=== PATIENT | female | born 1995 | race American Indian/Alaskan Native ===

== ENCOUNTER 2019-06-24 12:00 | Emergency (ER) | payer SELFPAY ==
--- NOTE | 2019-06-24 12:31 | Emergency Department Report ---
Chief Complaint: Upper Respiratory Infection Stated Complaint: SICK, FEVER, NAUSEA Time Seen by Provider: 06/24/19 12:30 - HPI History of Present Illness: Jennifer presents with nasal congestion, cough, nausea. Recommended OTC for URI. MSE completed. MSE screening note: Focused history and physical exam performed. Due to findings the following was ordered: ED Disposition for MSE Clinical Impression: Encounter for medical screening examination Disposition: MED SCREENING EXAM-LEFT Is pt being admited?: No Does the pt Need Aspirin: No Condition: Stable Referrals: YENNY SANTAMARIA MD [Staff Physician] - 3-5 Days Forms: Work/School Release Form(ED)
[2019-06-24 12:32] VITALS: BP 112/52
== END 2019-06-24 13:05 | disposition left against medical advice (07) ==
LOC: ED 12:00
DX: R09.89 Other specified symptoms and signs involving the circulatory and respiratory systems (principal); R05 Cough; R11.0 Nausea; Z00.8 Encounter for other general examination
CPT/HCPCS: 99281

== ENCOUNTER 2019-07-14 13:12 | Emergency (ER) | payer SELFPAY ==
[2019-07-14 17:00] LABS: Bilirubin,Urine NEG (Negative); Blood,Urine NEG (Negative); Color,Urine Yellow (Yellow); Mucus,Urine 2+ /HPF; Urobilinogen,Urine < 2.0 mg/dL (<2.0)
[2019-07-14 17:02] LABS: HCG Qualitative,Urine Negative (Negative)
--- NOTE | 2019-07-14 19:17 | Emergency Department Report ---
ED N/V/D HPI - General Chief complaint: Nausea/Vomiting/Diarrhea Stated complaint: VOMITING Time Seen by Provider: 07/14/19 19:08 Source: patient Mode of arrival: Ambulatory Limitations: No Limitations - History of Present Illness Initial comments: Patient is 23 years old female with no significant past medical history. Patient presented to the ER complaining of nausea and vomiting started this morning. Patient stated that she had this symptoms before several times. 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 Patient denied any abdominal pain, diarrhea, fever or chills. Patient stated that she is feeling better now. MD complaint: nausea, vomiting -: This morning Associated Abdominal Pain: No Context: other - Related Data Allergies Allergy/AdvReac Type Severity Reaction Status Date / Time No Known Allergies Allergy Unverified 06/24/19 12:03 ED Review of Systems ROS: Stated complaint: VOMITING Other details as noted in HPI Comment: All other systems reviewed and negative Constitutional: denies: chills, fever Cardiovascular: denies: chest pain Gastrointestinal: nausea, vomiting. denies: abdominal pain, diarrhea, constipation, hematemesis, melena, hematochezia Musculoskeletal: denies: back pain Neurological: denies: headache, weakness ED Past Medical Hx - Past Medical History Previous Medical History?: No - Surgical History Past Surgical History?: No - Social History Smoking Status: Current Every Day Smoker Substance Use Type: None ED Physical Exam - General Limitations: No Limitations General appearance: alert, in no apparent distress - Head Head exam: Present: atraumatic, normocephalic, normal inspection - Eye Eye exam: Present: normal appearance - ENT ENT exam: Present: normal exam, normal orophraynx, mucous membranes moist. Absent: mucous membranes dry - Neck Neck exam: Present: normal inspection, full ROM. Absent: tenderness, meningismus, lymphadenopathy, thyromegaly - Respiratory Respiratory exam: Present: normal lung sounds bilaterally - Cardiovascular Cardiovascular Exam: Present: regular rate, normal rhythm, normal heart sounds - GI/Abdominal GI/Abdominal exam: Present: soft, normal bowel sounds. Absent: distended, tenderness, guarding, rebound, rigid, organomegaly, mass, bruit, pulsatile mass, hernia - Extremities Exam Extremities exam: Present: normal inspection, full ROM, normal capillary refill. Absent: pedal edema, calf tenderness - Back Exam Back exam: Present: normal inspection, full ROM. Absent: CVA tenderness (R), CVA tenderness (L) - Neurological Exam Neurological exam: Present: alert, oriented X3, CN II-XII intact, normal gait, reflexes normal - Skin Skin exam: Present: warm, intact, normal color ED Course Vital Signs 07/14/19 14:04 Temperature 97.4 F L Pulse Rate 77 Respiratory 18 Rate Blood Pressure 101/68 O2 Sat by Pulse 99 Oximetry ED Medical Decision Making - Medical Decision Making Patient is 23 years old female with no significant past medical history. Patient presented to the ER complaining of nausea and vomiting started this morning. Patient stated that she had this symptoms before several times. 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 Patient denied any abdominal pain, diarrhea, fever or chills. Patient stated that she is feeling better now. Patient stated that her symptoms resolved now. Urine is reviewed and is negative for and no ketones to indicate dehydration. Abdomen is soft and no clinical evidence of acute abdomen. Patient given prescription for Zofran and advised to follow-up with her primary care physician in the next 2 to 3 days and to return to the ER if she is not feeling better. Critical care attestation.: If time is entered above; I have spent that time in minutes in the direct care of this critically ill patient, excluding procedure time. ED Disposition Clinical Impression: Nausea and vomiting Disposition: DC-01 TO HOME OR SELFCARE Is pt being admited?: No Condition: Stable Instructions: Acute Nausea and Vomiting (ED) Referrals: PRIMARY CARE, [Primary Care Provider] - 3-5 Days Forms: Work/School Release Form(ED)
[2019-07-14 19:35] VITALS: BP 116/71
== END 2019-07-14 19:33 | disposition home or self-care (01) ==
LOC: ED 13:12
DX: R11.2 Nausea with vomiting, unspecified (principal); F17.200 Nicotine dependence, unspecified, uncomplicated
CPT/HCPCS: 81001; 81025; 99283

== ENCOUNTER 2020-03-14 09:08 | Emergency (ER) | payer SELFPAY ==
[2020-03-14 09:14] VITALS: BP 109/58
--- NOTE | 2020-03-14 10:04 | Emergency Department Report ---
- General Chief Complaint: Upper Respiratory Infection Stated Complaint: SORE THROAT/COUGH/NO SMELL/TASTE Time Seen by Provider: 03/14/20 09:46 Source: patient Mode of arrival: Ambulatory Limitations: No Limitations - History of Present Illness Initial Comments: Patient is a 24-year-old female presents emergency room with complaints of URI symptoms that began a week ago. She has associated rhinorrhea, nasal congestion, sore throat, mild occasional dry cough. She denies any nausea, vomiting, diarrhea, fever, ear pain, shortness of breath, chest pain, abdominal pain. She states that she cannot smell or taste. She denies any known sick contacts or recent travel. She denies any past medical history. No allergies to medications. She states that her last menstrual cycle was 03/08/2020. - Related Data Previous Rx's Medication Instructions Recorded Last Taken Type Ondansetron [Zofran Odt] 4 mg PO Q8HR PRN #14 tab.rapdis 07/14/19 Unknown Rx Allergies Allergy/AdvReac Type Severity Reaction Status Date / Time No Known Allergies Allergy Unverified 06/24/19 12:03 ED Review of Systems ROS: Stated complaint: SORE THROAT/COUGH/NO SMELL/TASTE Other details as noted in HPI Comment: All other systems reviewed and negative ED Past Medical Hx - Past Medical History Previous Medical History?: No - Surgical History Past Surgical History?: No - Social History Smoking Status: Current Every Day Smoker Substance Use Type: None - Medications Home Medications: Home Medications Medication Instructions Recorded Confirmed Last Taken Type Ondansetron [Zofran Odt] 4 mg PO Q8HR PRN #14 tab.rapdis 07/14/19 Unknown Rx ED Physical Exam - General Limitations: No Limitations General appearance: alert, in no apparent distress - Head Head exam: Present: atraumatic, normocephalic - Eye Eye exam: Present: normal appearance - ENT ENT exam: Present: normal orophraynx, mucous membranes moist, TM's normal bilaterally, normal external ear exam - Neck Neck exam: Present: full ROM. Absent: meningismus - Respiratory Respiratory exam: Present: normal lung sounds bilaterally. Absent: respiratory distress, wheezes, rales, rhonchi, stridor, chest wall tenderness, accessory muscle use, decreased breath sounds, prolonged expiratory - Cardiovascular Cardiovascular Exam: Present: regular rate, normal rhythm, normal heart sounds. Absent: systolic murmur, diastolic murmur, rubs, gallop - Neurological Exam Neurological exam: Present: alert, oriented X3 - Psychiatric Psychiatric exam: Present: normal affect, normal mood - Skin Skin exam: Present: warm, dry, intact ED Course Vital Signs 03/14/20 09:13 Temperature 98.2 F Pulse Rate 62 Respiratory 16 Rate Blood Pressure 109/58 [Right] O2 Sat by Pulse 98 Oximetry ED Medical Decision Making - Radiology Data Radiology results: report reviewed - Medical Decision Making Patient is a 24-year-old female presents emergency room with complaints of URI symptoms that began a week ago. She has associated rhinorrhea, nasal congestion, sore throat, mild occasional dry cough. She denies any nausea, vomiting, diarrhea, fever, ear pain, shortness of breath, chest pain, abdominal pain. She states that she cannot smell or taste. She denies any known sick contacts or recent travel. She denies any past medical history. No allergies to medications. She states that her last menstrual cycle was 03/08/2020. Vitals are normal. On exam normal oropharynx, normal TMs and canals bilaterally, normal nasal turbinates, breath sounds are clear bilaterally, no wheezing, no rales, no rhonchi. Patient has no tachycardia, no fever, no hypoxia, breath sounds are clear bilaterally. Symptoms and examination appear most consistent with viral URI. Patient does not have any clinical signs of bacterial pneumonia or bronchitis. She has no clinical signs of dehydration. Patient is presenting with these symptoms during a COVID-19 pandemic, discussed the possibility of COVID-19 with patient, discussed very strict return precautions, discussed outpatient testing, discussed self quarantine. advised pt Please increase your fluid intake over the next several days. May take Tylenol as needed for fever or body aches. May take dest-xnp-jywygfz cold symptom relief medication such as Mucinex or TheraFlu. Follow-up with a primary care doctor for reexamination. Return to emergency room immediately for any new or worsening symptoms including but not limited to difficulty breathing, shortness of breath, severe chest pain, unable to tolerate by mouth intake, etc. Please self quarantine for 2 weeks from the onset of your symptoms. Please do not go out in public. If you are around others at home please wear a mask. If you need to cough or sneeze please do so in a napkin and immediately throw it away and immediately wash your hands. Wash your hands frequently. Wipe everything down. Recommend for you to get COVID-19 testing, may have this done at primary care doctor, health department, [facility] testing center. - Differential Diagnosis URI, PNA, COVID-19, viral syndrome, tonsillitis, pharyngitis, sinusitis Critical care attestation.: If time is entered above; I have spent that time in minutes in the direct care of this critically ill patient, excluding procedure time. ED Disposition Clinical Impression: Viral URI with cough Disposition: DC- TO HOME OR SELFCARE Is pt being admited?: No Does the pt Need Aspirin: No Condition: Stable Instructions: COVID-19, Viral Syndrome (ED) Additional Instructions: Please increase your fluid intake over the next several days. May take Tylenol as needed for fever or body aches. May take zedk-ikb-udgsuqc cold symptom relief medication such as Mucinex or TheraFlu. Follow-up with a primary care doctor for reexamination. Return to emergency room immediately for any new or worsening symptoms including but not limited to difficulty breathing, shortness of breath, severe chest pain, unable to tolerate by mouth intake, etc. Please self quarantine for 2 weeks from the onset of your symptoms. Please do not go out in public. If you are around others at home please wear a mask. If you need to cough or sneeze please do so in a napkin and immediately throw it away and immediately wash your hands. Wash your hands frequently. Wipe everything down. Recommend for you to get COVID-19 testing, may have this done at primary care doctor, health department, [facility] testing center. Referrals: YENNY SANTAMARIA MD [Staff Physician] - 2-3 Days [facility] [Provider Group] - 2-3 Days Forms: Work/School Release Form(ED) Time of Disposition: 10:04 Print Language: CYMRAES
== END 2020-03-14 11:19 | disposition home or self-care (01) ==
LOC: ED 09:08
DX: J06.9 Acute upper respiratory infection, unspecified (principal); F17.200 Nicotine dependence, unspecified, uncomplicated
CPT/HCPCS: 99282

== ENCOUNTER 2020-07-19 06:41 | Emergency (ER) | payer SELFPAY ==
[2020-07-19] MEDS ORDERED: ONDANSETRON 4 MG ODT TAB PO ONE (06:52)
[2020-07-19] MEDS ORDERED: IBUPROFEN 600 MG TAB PO ONE (06:52)
[2020-07-19] MEDS ORDERED: BUTALB/ACETAMINOPHEN/CAFFEINE TAB PO ONE (06:52)
--- NOTE | 2020-07-19 07:08 | Emergency Department Report ---
ED General Adult HPI - General Chief complaint: Headache Stated complaint: HEADACHE/CRAMPING/STOMACH PAIN Time Seen by Provider: 07/19/20 07:03 Source: patient Mode of arrival: Ambulatory Limitations: No Limitations - History of Present Illness Initial comments: 24-year-old female with no significant past medical history presents to the ER today with complaints of headache and lower abdominal cramping. Patient states that the symptoms started about 2 days ago. She denies any associated nausea, vomiting, diarrhea, URI symptoms, cough, vaginal discharge, UTI symptoms fever or chills. She states that she is currently on her menstrual cycle. She denies any ill contacts or recent travel. She tried Motrin 200 mg which did not help her symptoms. MD Complaint: Abdominal pain/KINCAID -: Gradual (2 days ago ) Location: head, abdomen - Related Data Previous Rx's Medication Instructions Recorded Last Taken Type Ondansetron [Zofran Odt] 4 mg PO Q8HR PRN #14 tab.rapdis 07/14/19 Unknown Rx Ibuprofen [Motrin] 800 mg PO Q8HR PRN #30 tablet 07/19/20 Unknown Rx cephALEXin [Keflex] 500 mg PO Q8HR #21 cap 07/19/20 Unknown Rx Allergies Allergy/AdvReac Type Severity Reaction Status Date / Time No Known Allergies Allergy Unverified 06/24/19 12:03 ED Review of Systems ROS: Stated complaint: HEADACHE/CRAMPING/STOMACH PAIN Other details as noted in HPI Comment: All other systems reviewed and negative Constitutional: denies: chills, fever ENT: denies: ear pain, throat pain Respiratory: denies: cough, shortness of breath, wheezing Cardiovascular: denies: chest pain, palpitations Gastrointestinal: abdominal pain. denies: nausea, vomiting, diarrhea, constipation, hematemesis, hematochezia Genitourinary: denies: urgency, dysuria, discharge Musculoskeletal: denies: back pain, joint swelling, arthralgia Skin: denies: rash, lesions Neurological: headache Psychiatric: denies: anxiety, depression Hematological/Lymphatic: denies: easy bleeding, easy bruising ED Past Medical Hx - Social History Smoking Status: Never Smoker Substance Use Type: None - Medications Home Medications: Home Medications Medication Instructions Recorded Confirmed Last Taken Type Ondansetron [Zofran Odt] 4 mg PO Q8HR PRN #14 tab.rapdis 07/14/19 Unknown Rx Ibuprofen [Motrin] 800 mg PO Q8HR PRN #30 tablet 07/19/20 Unknown Rx cephALEXin [Keflex] 500 mg PO Q8HR #21 cap 07/19/20 Unknown Rx ED Physical Exam - General Limitations: No Limitations General appearance: alert, in no apparent distress - Head Head exam: Present: atraumatic, normocephalic, normal inspection - Eye Eye exam: Present: normal appearance, PERRL, EOMI Pupils: Present: normal accommodation - ENT ENT exam: Present: normal exam, mucous membranes moist - Neck Neck exam: Present: normal inspection, full ROM. Absent: meningismus - Respiratory Respiratory exam: Present: normal lung sounds bilaterally. Absent: respiratory distress - Cardiovascular Cardiovascular Exam: Present: regular rate, normal rhythm, normal heart sounds - GI/Abdominal GI/Abdominal exam: Present: soft, tenderness (Mild suprapubic ttp ). Absent: distended - Neurological Exam Neurological exam: Present: alert, oriented X3, CN II-XII intact, normal gait - Psychiatric Psychiatric exam: Present: normal affect, normal mood - Skin Skin exam: Present: intact ED Course Vital Signs 07/19/20 06:47 Temperature 97.9 F Pulse Rate 74 Respiratory 15 Rate Blood Pressure 114/80 O2 Sat by Pulse 97 Oximetry ED Medical Decision Making - Lab Data Result diagrams: 07/19/20 07:08 07/19/20 07:07 - Medical Decision Making 24-year-old female with no significant past medical history presents to the ER today with complaints of headache and lower abdominal cramping. Patient states that the symptoms started about 2 days ago. She denies any associated nausea, vomiting, diarrhea, URI symptoms, cough, vaginal discharge, UTI symptoms fever or chills. She states that she is currently on her menstrual cycle. She denies any ill contacts or recent travel. She tried Motrin 200 mg which did not help her symptoms. Labs reviewed, CBC and CMP unremarkable. Urinalysis concerning for UTI. hCG negative. Patient currently resting comfortably, and she is not in any acute pain or respiratory distress. She is well-appearing, not toxic, and appears well- hydrated. She is neurologically intact with a normal gait. She has a soft nontender abdomen. Discussed lab results with patient discussed suspected diagnosis and treatment plan with patient. No further work-up indicated at this time. Patient expressed understanding of instructions and agree with plan. Patient was stable at time of discharge. Critical care attestation.: If time is entered above; I have spent that time in minutes in the direct care of this critically ill patient, excluding procedure time. ED Disposition Clinical Impression: UTI (urinary tract infection) Disposition: DC- TO HOME OR SELFCARE Is pt being admited?: No Does the pt Need Aspirin: No Condition: Stable Instructions: Urinary Tract Infection, Adult Additional Instructions: Take the Motrin and antibiotics as prescribed. Drink lots of water. Follow-up closely with your primary care doctor. Return to the ER if your symptoms changes or worsens in any way. Prescriptions: cephALEXin [Keflex] 500 mg PO Q8HR #21 cap Ibuprofen [Motrin] 800 mg PO Q8HR PRN #30 tablet PRN Reason: Pain, Moderate (4-6) Referrals: YENNY SANTAMARIA MD [Staff Physician] - 3-5 Days Forms: Work/School Release Form(ED) Time of Disposition: 08:23
[2020-07-19 07:12] VITALS: BP 114/80
[2020-07-19 07:21] LABS: Basophils % (Auto) 0.6 % (0.0-1.8); Eosinophils # (Auto) 0.1 K/mm3 (0.0-0.4); Eosinophils % (Auto) 1.9 % (0.0-4.3); Hematocrit 39.4 % (30.3-42.9); Hemoglobin 13.2 gm/dl (10.1-14.3); Lymphocytes # (Auto) 2.2 K/mm3 (1.2-5.4); Lymphocytes % (Auto) 36.4 % (13.4-35.0); Mean Corpuscular HGB Conc 34 % (30-34); Mean Corpuscular Volume 89 fl (79-97); Monocytes # (Auto) 0.4 K/mm3 (0.0-0.8); Monocytes % (Auto) 6.1 % (0.0-7.3); Platelet Count 220 K/mm3 (140-440); Red Blood Count 4.42 M/mm3 (3.65-5.03); Red Cell Distribution Width 13.3 % (13.2-15.2)
[2020-07-19 07:49] LABS: HCG Qualitative,Urine Negative (Negative)
[2020-07-19 07:52] LABS: Amorphous Crystals,Urine Few; Bacteria,Urine 1+ /HPF (Negative); Bilirubin,Urine NEG (Negative); Blood,Urine SM (Negative); Color,Urine Yellow (Yellow); Mucus,Urine FEW /HPF; Protein,Urine <15 mg/dL mg/dL (Negative)
[2020-07-19 08:16] LABS: Alanine Aminotransferase 17 units/L (7-56); Blood Urea Nitrogen 10 mg/dL (7-17); Calcium 8.7 mg/dL (8.4-10.2); Hemolysis Index 3
[2020-07-19 08:20] LABS: BUN/Creatinine Ratio 17
== END 2020-07-19 08:40 | disposition home or self-care (01) ==
LOC: ED 06:41
DX: N39.0 Urinary tract infection, site not specified (principal); Z79.899 Other long term (current) drug therapy
CPT/HCPCS: 36415; 80053; 81001; 81025; 85025; 87086; 99283; Q0162

== ENCOUNTER 2020-08-31 14:10 | Emergency (ER) | payer SELFPAY ==
[2020-08-31 14:25] VITALS: BP 109/74
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
== END 2020-08-31 16:51 | disposition home or self-care (01) ==
LOC: ED 14:10
DX: S63.501A Unspecified sprain of right wrist, initial encounter (principal); Z79.899 Other long term (current) drug therapy; X58.XXXA Exposure to other specified factors, initial encounter; Y93.89 Activity, other specified; Y92.89 Other specified places as the place of occurrence of the external cause; Y99.8 Other external cause status

== ENCOUNTER 2021-04-02 09:57 | Emergency (ER) | payer SELFPAY ==
[2021-04-02] MEDS ORDERED: IBUPROFEN 800 MG TAB PO ONE (10:08)
[2021-04-02] MEDS ORDERED: BENZONATATE 100 MG CAP PO ONE (10:08)
[2021-04-02] MEDS ORDERED: LIDOCAINE VISCOUS 2% 15 ML ORAL LIQD MM ONE (10:08)
--- NOTE | 2021-04-02 10:35 | Emergency Department Report ---
- General Chief Complaint: Sore Throat Stated Complaint: SORE THROAT,CONGESTED ,HEADACHE Time Seen by Provider: 04/02/21 10:04 Source: patient Mode of arrival: Ambulatory Limitations: No Limitations - History of Present Illness Initial Comments: This is a 25-year-old female nontoxic, well nourished in appearance, no acute signs of distress presents to the ED with c/o of productive cough, sinus pressure, sore throat, rhinorrhea, nasal congestion x several days. Patient describes productive cough as yellow mucus production. Patient denies any sick contact. Patient denies any recent travels, long car, recent hospital stays. Patient denies any calf pain or calf tenderness. Patient denies any chest pain, short of breath, fever, chills, nausea, vomiting, hemoptysis, numbness, tingling, headache or stiff neck. Patient denies any allergies or significant past medical history. Patient denies being vaccinated from [employer]. MD Complaint: cough, sore throat, rhinorrhea, nasal congestion, sinus pain -: days(s) Severity: mild Severity scale (0 -10): 3 Quality: sharp Consistency: constant Improves With: nothing Worsens With: other (Swallowing) Associated Symptoms: rhinorrhea, nasal congestion, sore throat, cough. denies: fever, chills, myalgias, diaphoresis, headache, stiff neck, chest pain, shortness of breath, abdominal pain, nausea, vomiting, diarrhea, dysuria, rash, confusion, right sweats, weight loss, epistaxis, hoarseness, ear pain Treatments Prior to Arrival: none - Related Data Previous Rx's Medication Instructions Recorded Last Taken Type Ondansetron [Zofran Odt] 4 mg PO Q8HR PRN #14 tab.rapdis 07/14/19 Unknown Rx Ibuprofen [Motrin] 800 mg PO Q8HR PRN #30 tablet 07/19/20 Unknown Rx cephALEXin [Keflex] 500 mg PO Q8HR #21 cap 07/19/20 Unknown Rx Naproxen 500 mg PO BID #20 tablet 08/31/20 Unknown Rx Azithromycin [Zithromax Z-MARYURI] 250 mg PO DAILY #6 tablet 04/02/21 Unknown Rx Benzonatate [Tessalon Perles] 100 mg PO Q8HR PRN #12 capsule 04/02/21 Unknown Rx Nystas/Diphen/Xyl Visc/Mylanta 15 ml MM Q6H PRN 5 Days #1 bottle 04/02/21 Unknown Rx [Magic Mouthwash] Allergies Allergy/AdvReac Type Severity Reaction Status Date / Time No Known Allergies Allergy Unverified 06/24/19 12:03 ED Review of Systems ROS: Stated complaint: SORE THROAT,CONGESTED ,HEADACHE Other details as noted in HPI Comment: All other systems reviewed and negative Constitutional: denies: chills, fever Eyes: denies: eye pain, eye discharge, vision change ENT: throat pain, congestion. denies: ear pain, dental pain, hearing loss, epistaxis Respiratory: cough. denies: shortness of breath, wheezing Cardiovascular: denies: chest pain, palpitations Endocrine: no symptoms reported Gastrointestinal: denies: abdominal pain, nausea, diarrhea Genitourinary: denies: urgency, dysuria, discharge Musculoskeletal: denies: back pain, joint swelling, arthralgia Skin: denies: rash, lesions Neurological: denies: headache, weakness, paresthesias Psychiatric: denies: anxiety, depression Hematological/Lymphatic: denies: easy bleeding, easy bruising ED Past Medical Hx - Past Medical History Previous Medical History?: No - Surgical History Past Surgical History?: No - Social History Smoking Status: Never Smoker Substance Use Type: None - Medications Home Medications: Home Medications Medication Instructions Recorded Confirmed Last Taken Type Ondansetron [Zofran Odt] 4 mg PO Q8HR PRN #14 tab.rapdis 07/14/19 Unknown Rx Ibuprofen [Motrin] 800 mg PO Q8HR PRN #30 tablet 07/19/20 Unknown Rx cephALEXin [Keflex] 500 mg PO Q8HR #21 cap 07/19/20 Unknown Rx Naproxen 500 mg PO BID #20 tablet 08/31/20 Unknown Rx Azithromycin [Zithromax Z-MARYURI] 250 mg PO DAILY #6 tablet 04/02/21 Unknown Rx Benzonatate [Tessalon Perles] 100 mg PO Q8HR PRN #12 capsule 04/02/21 Unknown Rx Nystas/Diphen/Xyl Visc/Mylanta 15 ml MM Q6H PRN 5 Days #1 bottle 04/02/21 Unknown Rx [Magic Mouthwash] ED Physical Exam - General Limitations: No Limitations General appearance: alert, in no apparent distress - Head Head exam: Present: atraumatic, normocephalic - Eye Eye exam: Present: normal appearance - Expanded ENT Exam Expanded Ear exam: Present: normal external inspection Mouth exam: Present: normal external inspection, tongue normal. Absent: drooling, trismus, muffled voice Teeth exam: Present: normal inspection Throat exam: Positive: tonsillar erythema, other (Uvula midline). Negative: tonsillomegaly, tonsillar exudate, R peritonsillar mass, L peritonsillar mass - Neck Neck exam: Present: normal inspection, full ROM. Absent: lymphadenopathy - Respiratory Respiratory exam: Present: normal lung sounds bilaterally. Absent: respiratory distress, wheezes, rales, rhonchi, stridor, chest wall tenderness, accessory muscle use, decreased breath sounds, prolonged expiratory - Cardiovascular Cardiovascular Exam: Present: regular rate, normal rhythm, normal heart sounds. Absent: bradycardia, tachycardia, irregular rhythm, systolic murmur, diastolic murmur, rubs, gallop - Extremities Exam Extremities exam: Present: full ROM - Back Exam Back exam: Present: full ROM - Neurological Exam Neurological exam: Present: alert, oriented X3, normal gait - Psychiatric Psychiatric exam: Present: normal affect, normal mood - Skin Skin exam: Present: warm, dry, intact, normal color. Absent: rash - Other Other exam information: Frontal sinus tenderness on exam ED Course Vital Signs 04/02/21 04/02/21 10:02 10:17 Temperature 99.1 F Pulse Rate 75 Respiratory 18 16 Rate Blood Pressure 100/57 O2 Sat by Pulse 100 Oximetry - Reevaluation(s) Reevaluation #1: 04/02/21 10:34 Patient is speaking in full sentences with no signs of distress noted. ED Medical Decision Making - Radiology Data [facility] [address] [place] [address] XRay Report Signed Patient: TANK ROSA#: [id number] : 1995 Acct:[id number] Age/Sex: 25 / F ADM Date: 04/02/21 Loc: ED Attending Dr: Ordering Physician: AL DEL ANGEL NP Date of Service: 04/02/21 Procedure(s): XR chest routine 2V Accession Number(s): [id number] cc: AL DEL ANGEL NP Fluoro Time In Minutes: CHEST 2 VIEWS INDICATION: cough. COMPARISON: None FINDINGS: SUPPORT DEVICES: None. HEART: Within normal limits. LUNGS/PLEURA: Mild patchy multifocal airspace disease. No effusion or dense consolidation. No pneumothorax. ADDITIONAL FINDINGS: None. IMPRESSION: 1. Lung findings as above. Signer Name: Moisés Trejo MD Signed: 04/02/2021 10:35 AM Workstation Name: [id number] Transcribed By: DIOGENES Dictated By: Moisés Trejo MD Electronically Authenticated By: Moisés Trejo MD Signed Date/Time: 04/02/211034 DD/ 34 TD/TT: - Medical Decision Making This is a 25-year-old female that presents with suspected covid, PNA, pharyngitis and sinusitis. Patient is stable and was examined by me. Chest x- ray has been obtained and dictated by radiologist with normal exam. Patient is notified of x-ray results with no questions noted. Patient does meet clinical concerns of COVID-19 and patient was instructed and educated on signs and symptoms and to self quarantine and seek medical attention as soon as possible if symptoms worsen. Patient be discharged with Azith Patient was instructed to increase hydration, rest and take Tylenol for fever episodes. Patient received motrin and tesslone perrls in the ED. Vitals stable. Patient is nonfebrile and normal heart rate. Patient was instructed Follow-up with a primary care doctor in 3-5 days or if symptoms worsen and continue return to emergency room as soon as possible. At time time of discharge, the patient does not seem toxic or ill in appearance. No acute signs of distress noted. Patient agrees to discharge treatment plan of care. No further questions noted by the patient.nt. Critical care attestation.: If time is entered above; I have spent that time in minutes in the direct care of this critically ill patient, excluding procedure time. ED Disposition Clinical Impression: Suspected COVID-19 virus infection PNA (pneumonia) Qualifiers: Pneumonia type: due to unspecified organism Laterality: bilateral Lung location: unspecified part of lung Qualified Code(s): J18.9 - Pneumonia, unspecified organism Pharyngitis Qualifiers: Pharyngitis/tonsillitis etiology: unspecified etiology Qualified Code(s): J02.9 - Acute pharyngitis, unspecified Sinusitis Qualifiers: Sinusitis location: frontal Chronicity: acute Recurrence: non-recurrent Qualified Code(s): J01.10 - Acute frontal sinusitis, unspecified Disposition: 01 HOME / SELF CARE / HOMELESS Is pt being admited?: No Does the pt Need Aspirin: No Condition: Stable Instructions: Bacterial Pneumonia (ED), Sinusitis, Adult, Community-Acquired Pneumonia, Adult, COVID-19 Frequently Asked Questions Additional Instructions: Follow-up with a primary care doctor in 3-5 days or if symptoms worsen and continue return to emergency room as soon as possible. As educated and instructed to you must self quarantine yourself and people that you have been in close contact with similar symptoms for the next 14 days. Please see your nearest health department or primary care doctor that you are referred to for COVID testing. Increased rest, hydration, and take Tylenol as prescribed for fever episode. Prescriptions: Nystas/Diphen/Xyl Visc/Mylanta [Magic Mouthwash] 15 ml MM Q6H PRN 5 Days #1 bottle PRN Reason: Sore Throat Benzonatate [Tessalon Perles] 100 mg PO Q8HR PRN #12 capsule PRN Reason: Cough Azithromycin [Zithromax Z-MARYURI] 250 mg PO DAILY #6 tablet Referrals: PRIMARY MD CARLA [Primary Care Provider] - 3-5 Days YENNY SANTAMARIA MD [Staff Physician] - 3-5 Days Time of Disposition: 10:53
--- NOTE | 2021-04-02 10:40 | XRay Report ---
CHEST 2 VIEWS INDICATION: cough. COMPARISON: None FINDINGS: SUPPORT DEVICES: None. HEART: Within normal limits. LUNGS/PLEURA: Mild patchy multifocal airspace disease. No effusion or dense consolidation. No pneumo thorax. ADDITIONAL FINDINGS: None. IMPRESSION: 1. Lung findings as above. Signer Name: Moisés Trejo MD Signed: 04/02/2021 10:35 AM Workstation Name: [id number]
[2021-04-02 11:09] VITALS: BP 120/80
== END 2021-04-02 11:08 | disposition home or self-care (01) ==
LOC: ED 09:57
DX: J18.9 Pneumonia, unspecified organism (principal); J32.9 Chronic sinusitis, unspecified; Z20.822 Contact with and (suspected) exposure to COVID-19; Z79.899 Other long term (current) drug therapy
CPT/HCPCS: 71046; 99283